=== PATIENT | female | born 1960 | race Hispanic/Latino ===

== ENCOUNTER → 2021-09-10 | Outpatient (CLI) | payer OTHER ==
[~2021-09-10] MED LIST: CALCIUM ACETAT667 M1 PO; FUROSEMIDE80 MG PO; NIFEDIPINE ER60 MG PO; OMEPRAZOLE40 MG PO; PRAVASTATIN SOD10 MG PO; SODIUM BICARBO650 MG PO; SULFAMETHOXAZO1 EAC1 PO; VITAMIN D31000 UNIT PO
[2021-09-10 12:25] LABS: HEMOGLOBIN 10.9 g/dL (12.0-16.0)
[2021-09-10 12:50] LABS: CREATININE, SERUM 1.82 mg/dL (0.57-1.11)
[2021-09-10 13:28] LABS: INR 1.03; PARTIAL THROMBOPLASTIN TIME 28.8 seconds (23.8-35.5); PROTHROMBIN TIME 14.3 seconds (11.9-14.5)
== END ==
LOC: DX 12:05
PROVIDERS: ATTEND Internal Medicine Infectious Disease
DX: N39.0 Urinary tract infection, site not specified (principal); Z20.822 Contact with and (suspected) exposure to COVID-19
CPT/HCPCS: 36415; 82565; 84520; 85014; 85049; 85610; 85730; U0002

== ENCOUNTER → 2021-09-13 | Outpatient (CLI) | payer OTHER ==
[~2021-09-13] MED LIST changes: +FENTANYL CITRATE/PF 100MCG/2 ML INJ ONE; +LIDOCAINE HCL 1% LOCAL INJ 20 ML VIAL ONE; +MIDAZOLAM HCL 2 MG/2 ML VIAL ONE; +SODIUM CHLORIDE 0.9% 250ML 250 ML ONE
== END ==
LOC: DX 09:09
PROVIDERS: ATTEND Internal Medicine Infectious Disease
DX: N39.0 Urinary tract infection, site not specified (principal)
CPT/HCPCS: 36558; 76937; 77001; J2001; J3010; J7050; 99152; 99153; J2250

== ENCOUNTER → 2021-10-13 | Outpatient (CLI) | payer OTHER ==
[~2021-10-13] MED LIST changes: -FENTANYL CITRATE/PF 100MCG/2 ML INJ ONE; -MIDAZOLAM HCL 2 MG/2 ML VIAL ONE; -SODIUM CHLORIDE 0.9% 250ML 250 ML ONE
== END ==
LOC: DX 10:55
PROVIDERS: ATTEND Internal Medicine Infectious Disease
DX: N39.0 Urinary tract infection, site not specified (principal)
CPT/HCPCS: 36589; J2001

== ENCOUNTER → 2025-07-16 | Day surgery (SDC) | payer BC ==
[2025-07-14 12:32] LABS: BASOPHILS % 0.5 % (0.0-1.0); EOSINOPHILS % 0.6 % (0.0-6.0); LYMPHOCYTES % 15.5 % (18.0-39.1); MONOCYTES % 6.7 % (4.4-11.3); NEUTROPHILS % 76.2 % (38.7-80.0); RED CELL DISTRIBUTION WIDTH 12.9 % (11.7-14.4)
[2025-07-14 12:57] LABS: INR 0.95
[2025-07-14 13:03] LABS: EST GLOMERULAR FILTRATION RATE 40.0 ML/MIN (>=60)
[~2025-07-16] MED LIST changes: +ACETAMINOPHEN/CODEINE 300MG - 30MG TAB ONE; +ASPIRIN81 MG PO; +COQ-10100 MG PO; +DEXAMETHASONE SOD PHOS INJ 4 MG/ML SDV ONE; +EPHEDRINE SULFATE INJ 50 MG/ML VIAL ONE; +FAMOTIDINE 20 MG/2 ML VIAL IV ONE; +FENTANYL CITRATE/PF 100MCG/2 ML INJ ONE; +LACTATED RINGER'S 1,000 ML ONE; -LIDOCAINE HCL 1% LOCAL INJ 20 ML VIAL ONE; +LIDOCAINE HCL 2% LOCAL INJ 5 ML SDV VIAL INJ ONE; +LOSARTAN POTASS25 MG PO; +MAGNESIUM100 MG PO; +MYCOPHENOLATE500 MG PO; +NITROFURANTOIN50 MG PO; +ONDANSETRON HCL INJ 2MG/ML 2ML 2 MG/ML VIAL ONE; +PREDNISONE5 MG PO; +PROPOFOL IV EMULSION 10 MG/ML 20 ML VIAL ONE; +SERTRALINE HCL50 MG PO; +TACROLIMUS1 MG PO; +VITAMIN D350 MCG PO
[2025-07-16] MEDS: ACETAMINOPHEN/CODEINE 300MG - 30MG TAB PO ONE (13:50)
[2025-07-16 14:00] VITALS: BP 142/71; PULSE 67; RESP 18; O2SAT 100
== END | disposition home or self-care (01) ==
LOC: OR 10:01
PROVIDERS: ATTEND Podiatrist Foot & Ankle Surgery
DX: M20.41 Other hammer toe(s) (acquired), right foot (principal); S93.124A Dislocation of metatarsophalangeal joint of right lesser toe(s), initial encounter; M21.621 Bunionette of right foot; D64.9 Anemia, unspecified; I10 Essential (primary) hypertension; E78.5 Hyperlipidemia, unspecified; K21.9 Gastro-esophageal reflux disease without esophagitis; N19 Unspecified kidney failure; N39.0 Urinary tract infection, site not specified; F41.9 Anxiety disorder, unspecified; X58.XXXA Exposure to other specified factors, initial encounter; Z91.048 Other nonmedicinal substance allergy status; Z01.812 Encounter for preprocedural laboratory examination; Z94.0 Kidney transplant status
CPT/HCPCS: 28285; 28308; 36415; 80048; 85025; 85610; 85730; J0690; J1100; J1308; J2003; J2405; J2704; J3010; J7121; 76000